=== PATIENT | male | born 1960 ===

== ENCOUNTER 2018-04-25 14:33 | Outpatient (CLI) | payer OTHER ==
[~2018-04-25 14:33] MED LIST: AMBIEN5 MG; CATAFLAM50 MG; CLONAZEPAM0.125 MG/T; COZAAR25 MG; LIPITOR20 MG
== END 2018-04-25 14:38 | disposition home or self-care (01) ==
LOC: RAD 14:33
DX: I10 Essential (primary) hypertension (principal)

== ENCOUNTER 2021-12-14 10:58 | Outpatient (CLI) | payer OTHER | END 2021-12-14 11:04 | disposition home or self-care (01) | LOC: LAB 10:58 | PROVIDERS: ATTEND Urology | DX: R97.20 Elevated prostate specific antigen [PSA] (principal) ==